=== PATIENT | male | born 1945 | race Caucasian/White ===

== ENCOUNTER → 2016-09-01 | Outpatient (REF) | payer MEDICARE, BC | LOC: M LAB REF 16:24 | PROVIDERS: ATTEND Family Medicine | DX: G24.5 Blepharospasm (principal); G24.2 Idiopathic nonfamilial dystonia ==

== ENCOUNTER → 2017-08-26 | Outpatient (REF) | payer MEDICARE, BC ==
[2017-08-26 18:17] LABS: PHOSPHORUS LEVEL 4.5 MG/DL (2.5-4.9)
== END ==
LOC: M LAB REF 17:47
DX: Z79.899 Other long term (current) drug therapy (principal)
CPT/HCPCS: 84100

== ENCOUNTER → 2017-08-30 | Outpatient (CLI) | payer MEDICARE, BC ==
[2017-08-30 18:17] LABS: CPK CREATINE PHOSPHOKINASE 162 U/L (39-308)
[2017-08-30 18:17] LABS: TROPONIN I < 0.02 NG/ML (< 0.10)
== END ==
LOC: M WUC 11:25
DX: R07.9 Chest pain, unspecified (principal)
CPT/HCPCS: 82550

== ENCOUNTER → 2017-09-09 | Outpatient (REF) | payer MEDICARE, BC ==
[2017-09-13 00:06] LABS: TISSUE TRANSGLUTAMINASE IgA <2 U/mL (0-3)
[2017-09-13 00:06] LABS: ENDOMYSIAL ABY IgA Negative (Negative)
== END ==
LOC: M LAB REF 12:11
DX: K30 Functional dyspepsia (principal)
CPT/HCPCS: 86255

== ENCOUNTER 2018-01-12 10:49 | Day surgery (SDC) | payer MEDICARE, BC ==
[~2018-01-12 10:49] MED LIST: MIDAZOLAM INJ 2 MG/2 ML VIAL (J2250) As Ordered
[2018-01-12] MEDS: TROPICAMIDE 1% OPHTH SOLN 2ML OD (11:17)
[2018-01-12] MEDS: OFLOXACIN 0.3 % (OCUFLOX) OPTH SOL 5ML OD (11:17)
[2018-01-12] MEDS: PROPARACAINE 0.5% OPHTH SOL 15ML OD (11:18)
[2018-01-12] MEDS: PHENYLEPHRINE 2.5% OPHTH SOL 2ML OD (11:18)
[2018-01-12] MEDS ORDERED: fentaNYL 100 MCG/2 ML INJECTION (J3010) As Ordered (11:43)
[2018-01-12] MEDS: DUOVISC (0.50ML VISCOAT/0.55ML PROVISC) OPHTH KIT As Ordered (12:20)
[2018-01-12] MEDS: BALANCED SALT IRRIGATION SOLUTION 500ML BAG (FOR OR EYE MACHINE) As Ordered (12:20)
[2018-01-12] MEDS: CEFUROXIME 1MG/0.1ML INTRACAMERAL INJ As Ordered (12:20)
[2018-01-12] MEDS: POVIDONE-IODINE 5% OPHTH PREP SOL 30ML As Ordered (12:20)
[2018-01-12] MEDS: LIDOCAINE 0.75%/EPINEPHRINE 0.025% IN BSS 1ML SYR INTRACAMERAL (OR ONLY) As Ordered (12:20)
[2018-01-12] MEDS ORDERED: ACETAMINOPHEN TAB 650MG DOSE (2X325MG) As Ordered (12:34)
[2018-01-12] MEDS: ACETAMINOPHEN TAB 650MG DOSE (2X325MG) PO (12:35)
[2018-01-12] MEDS ORDERED: MIDAZOLAM INJ 2 MG/2 ML VIAL (J2250) As Ordered (12:39)
[2018-01-12] MEDS ORDERED: ONDANSETRON 4MG/2ML VIAL (J2405) IV (12:45)
== END 2018-01-12 13:25 | disposition home or self-care (01) ==
LOC: M SDC 10:49
DX: H25.11 Age-related nuclear cataract, right eye (principal); K21.9 Gastro-esophageal reflux disease without esophagitis; I10 Essential (primary) hypertension; E78.5 Hyperlipidemia, unspecified; Z79.82 Long term (current) use of aspirin; Z79.899 Other long term (current) drug therapy; Z87.891 Personal history of nicotine dependence
CPT/HCPCS: 66984

== ENCOUNTER → 2021-06-23 | Outpatient (CLI) | payer MEDICARE, BC ==
[~2021-06-23] MED LIST changes: +ASPI81TA26 PO; +CENTCHW3 PO; +CENTTAB16 PO; +CITR500T PO; +CYAN500T14 PO; +DILA100C PO; +IBUP200C25 PO; +LOSA100T8 PO; -MIDAZOLAM INJ 2 MG/2 ML VIAL (J2250) As Ordered; +MINO0.1C PO; +PROBCAP4 PO; +RANI150T PO; +REST0.05 OU; +SIMV20TA22 PO
== END ==
LOC: M RAD 13:39
PROVIDERS: ATTEND Surgery
DX: R10.30 Lower abdominal pain, unspecified (principal); N43.2 Other hydrocele; N50.3 Cyst of epididymis; N50.89 Other specified disorders of the male genital organs

== ENCOUNTER → 2021-06-25 | Outpatient (REF) | payer MEDICARE, BC ==
[2021-06-25 17:18] LABS: APPEARANCE, URINE CLEAR (CLEAR); BACTERIA, URINE AUTO NEGATIVE (NEGATIVE); BILIRUBIN, URINE AUTO NEGATIVE (NEGATIVE); BLOOD, URINE BLOOD NEGATIVE (NEGATIVE); COLOR, URINE STRAW (YELLOW); GLUCOSE, URINE (UA) AUTO NEGATIVE (NEGATIVE); KETONE, URINE AUTO NEGATIVE (NEGATIVE); LEUKOCYTE ESTERASE, URINE AUTO NEGATIVE (NEGATIVE); MUCUS, URINE SMALL (NEGATIVE); NITRITE, URINE AUTO NEGATIVE (NEGATIVE); PROTEIN, URINE AUTO NEGATIVE (NEGATIVE); RBC, URINE AUTO 0 /HPF (0-3); SQUAMOUS EPITHELIAL CELL UR AU 0 /HPF (0-6); UROBILINOGEN, URINE AUTO 0.2 mg/dL (0.0-2.0); WBC, URINE AUTO 0 /HPF (0-3)
== END ==
LOC: M SMT 16:53
PROVIDERS: ATTEND Nurse Practitioner Women's Health
DX: N50.819 Testicular pain, unspecified (principal)